=== PATIENT | female | born 1995 | race Caucasian/White ===

== ENCOUNTER 2019-03-12 16:57 | Emergency (ER) | payer OTHER ==
[~2019-03-12] VITALS: Ht 160 cm; Wt 61.2 kg
[~2019-03-12 16:57] MED LIST: ADULT LOW DOSE81 MG PO; NORCO 5-325 TA1 EACH PO; PREDNISONE 5 MG5 M1 PO; TRAMADOL 50 MG50 MG PO; XANAX 0.5 MG0.5 MG PO
[2019-03-12 16:58] VITALS: BP 140/76
[2019-03-12] MEDS ORDERED: KEFLEX500 M1 PO (19:34)
[2019-03-12] MEDS ORDERED: IBUPROFEN 800800 M1 PO (19:34)
== END 2019-03-12 20:18 | disposition home or self-care (01) ==
LOC: ER 16:57
DX: L60.0 Ingrowing nail (principal)